=== PATIENT | female | born 1935 | race Caucasian/White ===

== ENCOUNTER → 2017-10-30 12:05 | Outpatient (CLI) | payer MEDICARE, SELFPAY ==
[2017-10-30 14:20] LABS: Absolute Neutrophil Count 2.3 X10^3/uL (2.0-7.7); Basophil# 0.04 X10^3/uL; Eosinophil# 0.05 X10^3/uL; Eosinophils% 1.2 % (0-5); Hematocrit 38.9 % (37-47); Hemoglobin 12.9 g/dl (12.0-15.0); Mean Corp Hgb Conc 33.2 g/gl (32-36); Mean Corpuscular Hgb 32.7 pg (27.0-32.0); Mean Corpuscular Volume 98.7 fL (81-99); Mean Platelet Vol. 12.1 fl (6.2-12.0); Monocyte# 0.33 X10^3/uL; Monocyte% 7.9 % (0-10); Neutrophil # 2.25 X10^3/uL (2.7-7.7); Neutrophil % 53.9 % (47-70); Platelet Count 153 K/mm3 (150-450); RBC Distribution Width CV 12.5 % (11.6-14.6); RBC Distribution Width SD 44.8 fl (35.1-43.9); Red Blood Count 3.94 M/mm3 (4.2-5.4); White Blood Count 4.2 K/mm3 (4.4-11.0)
[2017-10-30 14:29] LABS: POSITIVE COUNT NO; POSITIVE DIFFERENTIAL NO; POSITIVE MORPHOLOGY NO
[2017-10-30 14:34] LABS: ALB/GLOB Ratio 1.2 RATIO (0.9-2.4); AST(SGOT) 26 U/L (15-37); Alanine Aminotransfer ALT/SGPT 27 U/L (13-56); Albumin, Serum 3.4 g/dL (3.2-5.0); Alkaline Phosphatase 63 U/L (45-117); Anion Gap 10 (5-15); BUN 10 mg/dL (7-18); BUN/Creat Ratio 18.7 RATIO (10-20); Calcium,Total 8.1 mg/dL (8.5-10.1); Chloride 109 mmol/L (98-107); Creatinine, Serum 0.54 mg/dL (0.55-1.02); EST Glomerular Filtration Rate 116 mL/min (>60); Est Glom Filt Rate - Afr Amer 140 mL/min (>60); Globulin 2.9 g/dL (2.2-4.2); Glucose 74 mg/dL (74-106); Protein, Total 6.3 g/dL (6.4-8.2); Sodium Level 143 mmol/L (136-145)
== END ==
PROVIDERS: Family Provider Internal Medicine; PCP Internal Medicine; Visit Provider Internal Medicine Rheumatology
DX: M06.4 Inflammatory polyarthropathy (principal); M15.9 Polyosteoarthritis, unspecified; M47.892 Other spondylosis, cervical region; M41.9 Scoliosis, unspecified; K21.9 Gastro-esophageal reflux disease without esophagitis; N39.41 Urge incontinence
CPT/HCPCS: 36415; 80053; 85025

== ENCOUNTER → 2018-04-30 11:07 | Outpatient (CLI) | payer MEDICARE, SELFPAY ==
[2018-04-30 12:25] LABS: Absolute Lymphocyte Count 1.34 X10^3/ul (0.83-4.51); Absolute Neutrophil Count 2.3 X10^3/uL (2.0-7.7); Basophil# 0.03 X10^3/uL; Basophil% 0.7 % (0-1); Eosinophils% 2.4 % (0-5); Hematocrit 38.2 % (37-47); Hemoglobin 12.7 g/dl (12.0-15.0); Lymphocyte # 1.34 X10^3/ul (4.0); Lymphocyte % 32.3 % (19-41); Mean Corp Hgb Conc 33.2 g/gl (32-36); Mean Corpuscular Hgb 33.1 pg (27.0-32.0); Mean Corpuscular Volume 99.5 fL (81-99); Mean Platelet Vol. 11.8 fl (6.2-12.0); Monocyte# 0.42 X10^3/uL; Monocyte% 10.1 % (0-10); Neutrophil # 2.25 X10^3/uL (2.7-7.7); Neutrophil % 54.3 % (47-70); Platelet Count 163 K/mm3 (150-450); RBC Distribution Width CV 12.5 % (11.6-14.6); RBC Distribution Width SD 44.4 fl (35.1-43.9); Red Blood Count 3.84 M/mm3 (4.2-5.4); White Blood Count 4.2 K/mm3 (4.4-11.0)
[2018-04-30 12:26] LABS: POSITIVE COUNT NO; POSITIVE DIFFERENTIAL NO; POSITIVE MORPHOLOGY NO
[2018-04-30 12:41] LABS: ALB/GLOB Ratio 1.2 RATIO (0.9-2.4); AST(SGOT) 23 U/L (15-37); Alanine Aminotransfer ALT/SGPT 27 U/L (13-56); Albumin, Serum 3.5 g/dL (3.2-5.0); Alkaline Phosphatase 71 U/L (45-117); Anion Gap 7 (5-15); BUN 17 mg/dL (7-18); BUN/Creat Ratio 25.1 RATIO (10-20); Calcium,Total 8.5 mg/dL (8.5-10.1); Chloride 108 mmol/L (98-107); Creatinine, Serum 0.68 mg/dL (0.55-1.02); EST Glomerular Filtration Rate 88 mL/min (>60); Est Glom Filt Rate - Afr Amer 107 mL/min (>60); Glucose 78 mg/dL (74-106); Potassium 4.2 mmol/L (3.5-5.1); Protein, Total 6.5 g/dL (6.4-8.2); Sodium Level 143 mmol/L (136-145)
== END ==
PROVIDERS: Family Provider Internal Medicine; PCP Internal Medicine; Referring Provider Internal Medicine Rheumatology; Visit Provider Internal Medicine Rheumatology
DX: M06.4 Inflammatory polyarthropathy (principal); M47.892 Other spondylosis, cervical region; M41.9 Scoliosis, unspecified; K21.9 Gastro-esophageal reflux disease without esophagitis; N39.41 Urge incontinence
CPT/HCPCS: 36415; 80053; 85025

== ENCOUNTER → 2018-10-22 | Outpatient (CLI) | payer MEDICARE, SELFPAY ==
[2018-10-22 13:53] LABS: Absolute Lymphocyte Count 1.45 X10^3/ul (0.83-4.51); Absolute Neutrophil Count 2.7 X10^3/uL (2.0-7.7); Basophil# 0.03 X10^3/uL; Basophil% 0.6 % (0-1); Eosinophils% 2.1 % (0-5); Hematocrit 36.8 % (37-47); Hemoglobin 12.2 g/dl (12.0-15.0); Lymphocyte # 1.45 X10^3/ul (4.0); Lymphocyte % 30.8 % (19-41); Mean Corp Hgb Conc 33.2 g/gl (32-36); Mean Corpuscular Hgb 32.4 pg (27.0-32.0); Mean Corpuscular Volume 97.9 fL (81-99); Mean Platelet Vol. 11.4 fl (6.2-12.0); Monocyte# 0.38 X10^3/uL; Monocyte% 8.1 % (0-10); Neutrophil # 2.74 X10^3/uL (2.7-7.7); Neutrophil % 58.2 % (47-70); Platelet Count 191 K/mm3 (150-450); RBC Distribution Width SD 46.8 fl (35.1-43.9); Red Blood Count 3.76 M/mm3 (4.2-5.4); White Blood Count 4.7 K/mm3 (4.4-11.0)
[2018-10-22 13:57] LABS: POSITIVE COUNT NO; POSITIVE DIFFERENTIAL NO; POSITIVE MORPHOLOGY NO
[2018-10-22 14:08] LABS: ALB/GLOB Ratio 1.1 RATIO (0.9-2.4); AST(SGOT) 26 U/L (15-37); Alanine Aminotransfer ALT/SGPT 26 U/L (13-56); Albumin, Serum 3.3 g/dL (3.2-5.0); Alkaline Phosphatase 71 U/L (45-117); Anion Gap 4 (5-15); BUN 12 mg/dL (7-18); BUN/Creat Ratio 17.8 RATIO (10-20); Chloride 108 mmol/L (98-107); Creatinine, Serum 0.68 mg/dL (0.55-1.02); EST Glomerular Filtration Rate 89 mL/min (>60); Est Glom Filt Rate - Afr Amer 107 mL/min (>60); Globulin 2.9 g/dL (2.2-4.2); Glucose 74 mg/dL (74-106); Protein, Total 6.2 g/dL (6.4-8.2); Sodium Level 140 mmol/L (136-145)
== END | disposition home or self-care (01) ==
LOC: MTLAB 12:08
PROVIDERS: Family Provider Internal Medicine; PCP Internal Medicine; Referring Provider Internal Medicine Rheumatology; Visit Provider Internal Medicine Rheumatology
DX: K21.9 Gastro-esophageal reflux disease without esophagitis (principal); M06.4 Inflammatory polyarthropathy; M15.9 Polyosteoarthritis, unspecified; M47.892 Other spondylosis, cervical region; M41.9 Scoliosis, unspecified; N39.41 Urge incontinence
CPT/HCPCS: 36415; 80053; 85025

== ENCOUNTER 2019-02-04 11:15 | Emergency (ER) | payer MEDICARE, SELFPAY ==
[2019-02-04 11:16] VITALS: BP 153/70; PULSE 61; RESP 14; TEMP 37.1; O2SAT 98; BMI 20.7
--- NOTE | 2019-02-04 11:32 | CT_ITS ---
STUDY: CT ABDOMEN AND PELVIS WITH CONTRAST REASON FOR EXAM: Female, 83 years old. Nausea and vomiting RADIATION DOSAGE (If Supplied By Facility): CTDIvol = ( 13.38 ) mGy, DLP = ( 482.13 ) mGycm TECHNIQUE: Transaxial images were obtained from the dome of the diaphragm to the symphysis pubis without oral contrast. 100 IV/Oral Isovue 300 was administered. Sagittal and coronal images were reconstructed. Individualized dose optimization techniques were used for this CT. COMPARISON: None. FINDINGS: There are chronic interstitial fibrotic changes of the lung bases. The visualized portions of the heart are within normal limits. Liver is unremarkable, no discrete lesion is noted. There is central intrahepatic biliary dilatation but patient has undergone previous cholecystectomy so this is not an unusual finding. There are surgical clips in the gallbladder fossa consistent with a prior cholecystectomy. Normal spleen. Normal pancreas. Normal bilateral adrenal glands. Normal right kidney. Normal left kidney. Postsurgical changes noted at the GE junction. Normal small intestine. Retained stool noted in the colon. There are surgical clips in the region of the appendix consistent with a prior appendectomy. Normal abdominal aorta. Normal inferior vena cava. Normal retroperitoneum. Normal urinary bladder. There is absence of the uterus consistent with a prior hysterectomy. Normal abdominal wall. There are diffuse degenerative changes of the visualized lumbar spine, and pelvis. Rotatory scoliosis noted CT/Abdomen/Pelvis WITH Contrast IMPRESSION: No suspicious solid organomegaly, there are changes in the liver and biliary tree consistent with previous cholecystectomy No CT evidence of an acute inflammatory process Retained stool noted in the colon Degenerative bony changes with prominent rotatory scoliosis Electronically Signed: Dominic Gilmore MD at 13:47 EDT , Service support ,
[2019-02-04 11:43] LABS: Absolute Lymphocyte Count 1.02 X10^3/uL (0.83-4.51); Absolute Neutrophil Count 4.6 X10^3/uL (2.0-7.7); Basophil# 0.03 X10^3/uL; Basophil% 0.5 % (0-1); Eosinophil# 0.05 X10^3/uL; Eosinophils% 0.8 % (0-5); Hematocrit 38.1 % (37-47); Lymphocyte # 1.02 X10^3/ul (4.0); Lymphocyte % 16.7 % (19-41); Mean Corp Hgb Conc 34.1 g/dL (32-36); Mean Corpuscular Hgb 33.2 pg (27.0-32.0); Mean Corpuscular Volume 97.4 fL (81-99); Mean Platelet Vol. 11.1 fl (6.2-12.0); Monocyte# 0.38 X10^3/uL; Monocyte% 6.2 % (0-10); NRBC Flagged by Analyzer 0 % (0-5); Neutrophil # 4.62 X10^3/uL (2.7-7.7); Neutrophil % 75.5 % (47-70); Platelet Count 180 K/mm3 (150-450); RBC Distribution Width CV 12.4 % (11.6-14.6); RBC Distribution Width SD 44.2 fl (35.1-43.9); Red Blood Count 3.91 M/mm3 (4.2-5.4); White Blood Count 6.1 K/mm3 (4.4-11.0)
[2019-02-04 11:50] LABS: Anion Gap 2 (5-15); BUN 14 mg/dL (7-18); BUN/Creat Ratio 21.3 RATIO (10-20); Calcium,Total 8.3 mg/dL (8.5-10.1); Chloride 111 mmol/L (98-107); Creatinine, Serum 0.66 mg/dL (0.55-1.02); EST Glomerular Filtration Rate 91 mL/min (>60); Est Glom Filt Rate - Afr Amer 111 mL/min (>60); Estimated Creatinine Clearance 30.62 ml/min; Glucose 93 mg/dL (74-106); Lipase 80 U/L (73-393); Sodium Level 139 mmol/L (136-145)
[2019-02-04 12:19] LABS: Lactic Acid 1.2 mmol/L (0.4-2.0)
[2019-02-04] MEDS: 0.9% Normal Saline 1,000 ML 125 ML IV (12:35)
[2019-02-04] MEDS: Morphine 4 MG/ML Syringe IV (12:35)
[2019-02-04] MEDS: Ondansetron 4 MG/2 ML Vial IV (12:35)
[2019-02-04 12:45] LABS: Mucous, Urine 0 SEEN /hpf (<or=2+); Red Blood Cells-Urine 0 SEEN /hpf (0-5); Squamous Epithelial Cells - UA 0 SEEN /hpf (5-10)
[2019-02-04 12:49] LABS: Color, Urine Yellow (Yellow); Glucose, Dipstick Normal (Normal); Ketone-Dipstick 5 mg/dl (Negative); Leukocyte Esterase-Dipstick 25 /ul (Negative); Nitrite-Dipstick Positive (Negative); Occult Blood-Urine 10 /ul (Negative); Protein-Dipstick Negative (Negative); Specific Gravity, Urine 1.015 (1.002-1.030); Urine Bilirubin Dipstick Negative (Negative); Urine Clarity Sl. Cloudy (Clear); Urine Urobilinogen Normal (Normal)
[2019-02-04 12:57] LABS: Bacteria 3+ /hpf (None Seen); White Blood Cells 0-5 SEEN /hpf (0-5)
[2019-02-04 13:15] VITALS: BP 141/70; PULSE 61; RESP 15; O2SAT 97
--- NOTE | 2019-02-04 14:27 | ED.VISSUMM ---
- ER Visit Summary Date of Service: 02/04/19 Chief Complaint: [Abdominal pain] History of Present Illness: The patient is a 83 F [presents to the emergency department with abdominal pain since 8:30 AM this morning. Patient complains of a lot of cramping with severe pain that waxes and wanes in intensity. Pain worse with certain movements. She is had some mild nausea but no vomiting. She denies any diarrhea. Patient came on relatively suddenly after going out for a walk this morning. Patient has not had any fevers. Patient denies any blood in her stool or black tarry stool. She has not had pain like this before. Her last bowel movement was last night and was normal. Patient does have a history of osteoporosis and she has had prior appendectomy, cholecystectomy, and hysterectomy.] Physical Examination: [HEENT-PERRLA, EOMI. Cranial nerves II through XII grossly intact. TMs clear. Mucous membranes moist. No adenopathy. Cardiovascular-regular rate and rhythm without murmur or ectopy Lungs-clear to auscultation, chest wall stable without crepitus or subcu emphysema Abdomen-normoactive bowel sounds, soft. Patient has diffuse tenderness to palpation. There is some mild guarding. No rebound, rigidity, or perineal signs. Extremities-intact ?4, normal range of motion, normal pulses, atraumatic] Test Results: [CBC with differential shows a white count 6.1, hemoglobin 13, hematocrit 38, platelets 180. Chemistries unremarkable. LFTs were normal. Lipase was 80. Urinalysis was positive for nitrites as well as +3 bacteria however only 0-5 WBCs and [address] scan of the abdomen and pelvis showed some fecal stasis but otherwise nothing acute.] Emergency Department Course and Treatment: [Initially medicated with 4 mg of morphine 4 mg Zofran she had good pain relief with that. Patient was given Keflex 500 mill grams p.o.] Treatment Plan: [She will be treated with Keflex and Bentyl for cramping. Patient advised to use some [id number] magnesium citrate. Patient to follow-up with her primary care physician within next 3 to 5 days.] Disposition: [Discharged home stable condition] Impression: [Abdominal pain UTI] This note was generated with [employer] dictation software. It may contain incorrect words, spelling, and punctuation that were not noted in review of the chart prior to signing ED Disposition - Plan for ED Patient: Referrals: Hazel Lorenzo MD [Primary Care Provider] -
--- NOTE | 2019-02-04 14:31 | ED.DEP ---
ED Disposition - Plan for ED Patient: Instructions: ABDOMINAL PAIN, Unknown Cause, (Female), Urinary Tract Infections in Women Prescriptions: Dicyclomine HCl [Bentyl] 20 mg PO TIDAC #20 cap Prescription Printed Cephalexin [Keflex] 500 mg PO Q6 #28 cap Prescription Printed Referrals: Hazel Lorenzo MD [Primary Care Provider] - 3-5 Days
[2019-02-04] MEDS: Cephalexin 250 MG Capsule 500 MG PO (14:42)
[2019-02-04 14:43] VITALS: BP 152/97; PULSE 71; RESP 24; O2SAT 95
== END 2019-02-04 14:49 | disposition home or self-care (01) ==
LOC: ED 11:41
PROVIDERS: Emergency Provider Emergency Medicine; Family Provider Internal Medicine; PCP Internal Medicine
DX: N39.0 Urinary tract infection, site not specified (principal); M81.0 Age-related osteoporosis without current pathological fracture; Z90.710 Acquired absence of both cervix and uterus; Z90.49 Acquired absence of other specified parts of digestive tract
CPT/HCPCS: 74177; 80048; 81001; 83605; 83690; 85025; 96361; 96374; 96375; 99285; J7030; Q9967; A4216; J2405

== ENCOUNTER → 2019-02-12 09:26 | Outpatient (CLI) | payer MEDICARE, SELFPAY ==
[2019-02-04 11:16] VITALS: BMI 20.7
[2019-02-12 12:11] LABS: Absolute Neutrophil Count 2.7 X10^3/uL (2.0-7.7); Basophil# 0.04 X10^3/uL; Basophil% 0.9 % (0-1); Eosinophil# 0.13 X10^3/uL; Eosinophils% 2.8 % (0-5); Hematocrit 37.8 % (37-47); Hemoglobin 12.4 g/dL (12.0-15.0); Lymphocyte % 28.1 % (19-41); Mean Corp Hgb Conc 32.8 g/dL (32-36); Mean Corpuscular Hgb 32.3 pg (27.0-32.0); Mean Corpuscular Volume 98.4 fL (81-99); Mean Platelet Vol. 11.7 fl (6.2-12.0); Monocyte# 0.46 X10^3/uL; Monocyte% 9.9 % (0-10); NRBC Flagged by Analyzer 0 % (0-5); Neutrophil # 2.69 X10^3/uL (2.7-7.7); Neutrophil % 58.1 % (47-70); Platelet Count 182 K/mm3 (150-450); RBC Distribution Width CV 12.5 % (11.6-14.6); RBC Distribution Width SD 44.9 fl (35.1-43.9); Red Blood Count 3.84 M/mm3 (4.2-5.4); White Blood Count 4.6 K/mm3 (4.4-11.0)
[2019-02-12 12:50] LABS: ALB/GLOB Ratio 1.1 RATIO (0.9-2.4); AST(SGOT) 24 U/L (15-37); Alanine Aminotransfer ALT/SGPT 27 U/L (13-56); Albumin, Serum 3.2 g/dL (3.2-5.0); Alkaline Phosphatase 78 U/L (45-117); Anion Gap 9 (5-15); BUN 11 mg/dL (7-18); BUN/Creat Ratio 15.8 RATIO (10-20); Calcium,Total 8.5 mg/dL (8.5-10.1); Chloride 109 mmol/L (98-107); EST Glomerular Filtration Rate 86 mL/min (>60); Est Glom Filt Rate - Afr Amer 103 mL/min (>60); Globulin 2.9 g/dL (2.2-4.2); Glucose 94 mg/dL (74-106); Potassium 3.9 mmol/L (3.5-5.1); Protein, Total 6.1 g/dL (6.4-8.2); Sodium Level 144 mmol/L (136-145)
== END ==
PROVIDERS: Family Provider Internal Medicine; PCP Internal Medicine; Referring Provider Internal Medicine Rheumatology; Visit Provider Internal Medicine Rheumatology
DX: M06.4 Inflammatory polyarthropathy (principal); M15.9 Polyosteoarthritis, unspecified; M47.892 Other spondylosis, cervical region; M41.9 Scoliosis, unspecified; K21.9 Gastro-esophageal reflux disease without esophagitis; N39.41 Urge incontinence; H35.30 Unspecified macular degeneration
CPT/HCPCS: 36415; 80053; 85025

== ENCOUNTER → 2019-04-16 11:56 | Outpatient (CLI) | payer MEDICARE, SELFPAY ==
[2019-04-16 13:44] LABS: Absolute Lymphocyte Count 1.77 X10^3/uL (0.83-4.51); Absolute Neutrophil Count 3.5 X10^3/uL (2.0-7.7); Basophil# 0.04 X10^3/uL; Basophil% 0.7 % (0-1); Eosinophil# 0.08 X10^3/uL; Eosinophils% 1.3 % (0-5); Hemoglobin 12.7 g/dL (12.0-15.0); Lymphocyte # 1.77 X10^3/ul (4.0); Lymphocyte % 29.8 % (19-41); Mean Corp Hgb Conc 33.4 g/dL (32-36); Mean Corpuscular Hgb 33.4 pg (27.0-32.0); Mean Platelet Vol. 11.4 fl (6.2-12.0); Monocyte# 0.51 X10^3/uL; Monocyte% 8.6 % (0-10); NRBC Flagged by Analyzer 0 % (0-5); Neutrophil # 3.53 X10^3/uL (2.7-7.7); Neutrophil % 59.4 % (47-70); Platelet Count 205 K/mm3 (150-450); RBC Distribution Width CV 13.2 % (11.6-14.6); RBC Distribution Width SD 48.3 fl (35.1-43.9); White Blood Count 5.9 K/mm3 (4.4-11.0)
[2019-04-16 14:02] LABS: ALB/GLOB Ratio 1.2 RATIO (0.9-2.4); AST(SGOT) 23 U/L (15-37); Albumin, Serum 3.4 g/dL (3.2-5.0); BUN 13 mg/dL (7-18); BUN/Creat Ratio 19.9 RATIO (10-20); Calcium,Total 8.5 mg/dL (8.5-10.1); Creatinine, Serum 0.65 mg/dL (0.55-1.02); EST Glomerular Filtration Rate 92 mL/min (>60); Est Glom Filt Rate - Afr Amer 111 mL/min (>60); Globulin 2.9 g/dL (2.2-4.2); Glucose 84 mg/dL (74-106); Protein, Total 6.3 g/dL (6.4-8.2)
[2019-04-16 14:03] LABS: Alanine Aminotransfer ALT/SGPT 22 U/L (13-56); Alkaline Phosphatase 79 U/L (45-117); Anion Gap 8 (5-15); Chloride 106 mmol/L (98-107); Sodium Level 143 mmol/L (136-145)
== END ==
PROVIDERS: Family Provider Internal Medicine; PCP Internal Medicine; Referring Provider Internal Medicine Rheumatology; Visit Provider Internal Medicine Rheumatology
DX: M06.4 Inflammatory polyarthropathy (principal); M15.9 Polyosteoarthritis, unspecified; M47.892 Other spondylosis, cervical region; M41.9 Scoliosis, unspecified; K21.9 Gastro-esophageal reflux disease without esophagitis; N39.41 Urge incontinence; H35.30 Unspecified macular degeneration
CPT/HCPCS: 36415; 80053; 85025

== ENCOUNTER → 2019-08-06 10:39 | Outpatient (CLI) | payer MEDICARE, SELFPAY ==
[2019-08-06 12:31] LABS: Absolute Lymphocyte Count 1.52 X10^3/uL (0.83-4.51); Absolute Neutrophil Count 2.7 X10^3/uL (2.0-7.7); Basophil# 0.04 X10^3/uL; Basophil% 0.8 % (0-1); Eosinophils% 2.1 % (0-5); Hematocrit 39.2 % (37-47); Hemoglobin 12.8 g/dL (12.0-15.0); Lymphocyte # 1.52 X10^3/ul (4.0); Lymphocyte % 32.1 % (19-41); Mean Corp Hgb Conc 32.7 g/dL (32-36); Mean Corpuscular Hgb 31.8 pg (27.0-32.0); Mean Corpuscular Volume 97.3 fL (81-99); Mean Platelet Vol. 11.5 fl (6.2-12.0); Monocyte# 0.41 X10^3/uL; Monocyte% 8.6 % (0-10); NRBC Flagged by Analyzer 0 % (0-5); Neutrophil # 2.66 X10^3/uL (2.7-7.7); Neutrophil % 56.2 % (47-70); Platelet Count 161 K/mm3 (150-450); RBC Distribution Width CV 12.7 % (11.6-14.6); RBC Distribution Width SD 45.3 fl (35.1-43.9); Red Blood Count 4.03 M/mm3 (4.2-5.4); White Blood Count 4.7 K/mm3 (4.4-11.0)
[2019-08-06 12:41] LABS: AST(SGOT) 21 U/L (15-37); Alanine Aminotransfer ALT/SGPT 27 U/L (13-56); Albumin, Serum 3.4 g/dL (3.2-5.0); Alkaline Phosphatase 76 U/L (45-117); Anion Gap 4 (5-15); BUN 19 mg/dL (7-18); BUN/Creat Ratio 27.3 RATIO (10-20); Calcium,Total 8.7 mg/dL (8.5-10.1); Chloride 110 mmol/L (98-107); EST Glomerular Filtration Rate 85 mL/min (>60); Est Glom Filt Rate - Afr Amer 103 mL/min (>60); Globulin 3.3 g/dL (2.2-4.2); Glucose 70 mg/dL (74-106); Potassium 3.7 mmol/L (3.5-5.1); Protein, Total 6.7 g/dL (6.4-8.2); Sodium Level 141 mmol/L (136-145)
== END ==
PROVIDERS: PCP Internal Medicine; Referring Provider Internal Medicine Rheumatology; Visit Provider Internal Medicine Rheumatology
DX: M06.4 Inflammatory polyarthropathy (principal); Z79.899 Other long term (current) drug therapy; M47.892 Other spondylosis, cervical region; M41.9 Scoliosis, unspecified; M15.9 Polyosteoarthritis, unspecified
CPT/HCPCS: 36415; 80053; 85025; 87086; 87088; 87186

== ENCOUNTER → 2019-12-02 11:58 | Outpatient (CLI) | payer MEDICARE, SELFPAY ==
[2019-12-02 14:52] LABS: Absolute Lymphocyte Count 1.76 X10^3/uL (0.83-4.51); Absolute Neutrophil Count 2.5 X10^3/uL (2.0-7.7); Basophil# 0.04 X10^3/uL; Basophil% 0.8 % (0-1); Eosinophil# 0.16 X10^3/uL; Eosinophils% 3.2 % (0-5); Hematocrit 39.7 % (37-47); Hemoglobin 12.9 g/dL (12.0-15.0); Lymphocyte # 1.76 X10^3/ul (4.0); Lymphocyte % 35.5 % (19-41); Mean Corp Hgb Conc 32.5 g/dL (32-36); Mean Corpuscular Hgb 31.9 pg (27.0-32.0); Mean Platelet Vol. 11.3 fl (6.2-12.0); Monocyte# 0.45 X10^3/uL; Monocyte% 9.1 % (0-10); NRBC Flagged by Analyzer 0 % (0-5); Neutrophil # 2.54 X10^3/uL (2.7-7.7); Neutrophil % 51.2 % (47-70); Platelet Count 197 K/mm3 (150-450); RBC Distribution Width CV 12.6 % (11.6-14.6); RBC Distribution Width SD 45.6 fl (35.1-43.9); Red Blood Count 4.05 M/mm3 (4.2-5.4)
[2019-12-02 15:17] LABS: ALB/GLOB Ratio 1.1 RATIO (0.9-2.4); AST(SGOT) 24 U/L (15-37); Alanine Aminotransfer ALT/SGPT 28 U/L (13-56); Albumin, Serum 3.4 g/dL (3.2-5.0); Alkaline Phosphatase 77 U/L (45-117); Anion Gap 4 (5-15); BUN 14 mg/dL (7-18); BUN/Creat Ratio 22.3 RATIO (10-20); Calcium,Total 9.2 mg/dL (8.5-10.1); Chloride 107 mmol/L (98-107); Creatinine, Serum 0.63 mg/dL (0.55-1.02); EST Glomerular Filtration Rate 96 mL/min (>60); Est Glom Filt Rate - Afr Amer 116 mL/min (>60); Globulin 3.1 g/dL (2.2-4.2); Glucose 66 mg/dL (74-106); Potassium 3.8 mmol/L (3.5-5.1); Protein, Total 6.5 g/dL (6.4-8.2); Sodium Level 141 mmol/L (136-145)
== END ==
PROVIDERS: PCP Internal Medicine; Referring Provider Internal Medicine Rheumatology; Visit Provider Internal Medicine Rheumatology
DX: M06.4 Inflammatory polyarthropathy (principal); Z79.899 Other long term (current) drug therapy; M15.9 Polyosteoarthritis, unspecified; M47.892 Other spondylosis, cervical region; M41.9 Scoliosis, unspecified; K21.9 Gastro-esophageal reflux disease without esophagitis; N39.41 Urge incontinence; H35.30 Unspecified macular degeneration
CPT/HCPCS: 36415; 80053; 85025

== ENCOUNTER 2020-01-24 12:03 | Emergency (ER) | payer MEDICARE, SELFPAY ==
[2020-01-24] VITALS (11 sets, daily range): BP systolic 136–185; BP diastolic 63–111; PULSE 65–101; RESP 14–20; TEMP 36.5; O2SAT 97–100; BMI 19.1
--- NOTE | 2020-01-24 12:06 | CT_ITS ---
STUDY: CT BRAIN WITHOUT CONTRAST REASON FOR EXAM: Female, 84 years old. unresponsive. cva RADIATION DOSAGE (If Supplied By Facility): CTDIvol = ( 44.99 ) mGy, DLP = ( 815.79 ) mGycm TECHNIQUE: Transaxial CT imaging of the brain was performed without administration of intravenous contrast material. Individualized dose optimization techniques were used for this CT. COMPARISON: No relevant priors. FINDINGS: Normal soft tissue structures. Normal calvarium. There is mild cerebral atrophy with widening of the extra-axial spaces and ventricular dilatation. There are areas of decreased attenuation within the white matter tracts of the supratentorial brain, consistent with microvascular disease changes. Normal basal ganglia and thalami. Normal brainstem. There is a 2.9 cm x 3.7 cm acute hematoma in the central portion of the cerebellum. This causes hydrocephalus. Normal visualized paranasal sinuses. CT/Brain/Head without Contrast IMPRESSION: Acute hematoma in the central portion of the cerebellum causing hydrocephalus. N.B. : The above information has been verbally conveyed by Noah Moses to ROGE BURDICK on 01/24/2020 12:25:53 (ET). Electronically Signed: Noah Moses, at 12:27 EDT , Service support ,
--- NOTE | 2020-01-24 12:08 | EKG12_ITS ---
Test Reason : DYSRHYTHMIA Blood Pressure : / mmHG Vent. Rate : 062 BPM Atrial Rate : 062 BPM P-R Int : 164 ms QRS Dur : 078 ms QT Int : 454 ms P-R-T Axes : 069 068 066 degrees QTc Int : 460 ms Normal sinus rhythm Normal ECG Confirmed by SAHIL PARK, NOHEMI ([id number]), assignment desk editor BRIAN ALVES ([id number]) on 01/27/2020 8:23:33 AM Referred By: RADHA Confirmed By:NOHEMI BAXTER MD
--- NOTE | 2020-01-24 12:10 | ED.DCSUM_ITS ---
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 She is unable to give a history. She has normal vital signs. Her blood sugar was in the 130s. Report by EMS is that her last saw her 30 minutes prior and she was feeling unwell like she did not want a go further normal walk. When he came back 30 minutes later she was laying on the floor. She has been unresponsive since. There is no reported medical history. EMS states that her states she does not take any medicines and has no medical problems. Past Medical History - Allergies and Home Meds Allergies/Adverse Reactions: Allergies Sulfa (Sulfonamide Antibiotics) Allergy (Verified 02/04/19 13:21) Rash codeine Adverse Reaction (Verified 02/04/19 13:21) Vomiting Primary Care Physician: Hazel Lorenzo MD [Primary Care Provider] - Doctors: Unknown Past Medical History: - - Unable to assess Lives: Spouse/ Significant Other Smoking Status: Never smoker Review of Systems ROS: Unable to Obtain Physical Exam Inital Vital Signs reviewed: Yes General: Well nourished, Well developed Head: Normocephalic, Atraumatic Eyes: - - Pupils are pinpoint ENT: Dry mucous membranes Cardiovascular: Regular rate, Regular rhythm Respiratory: CTA bilaterally Abdomen: Soft, Nontender Skin: Normal color, No rash Neurological: Lethargic Diagnostic/Tx/Re-eval Chest X-Ray - ED: 1 View, Read by Radiologist CT brain:There is mild cerebral atrophy with widening of the extra-axial spaces and ventricular dilatation. There are areas of decreased attenuation within the white matter tracts of the supratentorial brain, consistent with microvascular disease changes. Normal basal ganglia and thalami. Normal brainstem. There is a 2.9 cm x 3.7 cm acute hematoma in the central portion of the cerebellum. This causes hydrocephalus. - Rhythm Strip Rhythm Strip: Sinus Rhythm Rate: 62 - R interval 164 msQRS duration 78 msQTc 460 ms - Medical Decision Making Patient presents with acute change in mental status. Last known well 30 minutes prior when her states that she was normal. He does state that she was fatigue and did not want to take a walk like they normally do. She has been unarousable by EMS and by me. Her vital signs were stable upon arrival. Her blood sugar was normal. Patient was grossly unresponsive however. She was taken to CT and which identified there is a 2.9 cm x 3.7 cm acute hematoma in the centralportion of the cerebellum secondary hydrocephalus hydrocephalus. There is mild cerebral atrophy with widening of the extra-axial spaces andventricular dilatation. There are areas of decreasedattenuation withinthe white matter tracts of the supratentorial brain, consistent withmicrovascular disease changes. Normal basal ganglia and thalami. Normalbrainstem. There is a 2.9 cm x 3.7 cm acute hematoma in the centralportion of the cerebellum and secondary hydrocephalus. Patient's EKG was sinus rhythm without signs of ischemia. Her troponin was 0.9 however. Patient was not given aspirin or h eparin given that she has a brain bleed. Intubation patient was started on propofol drip as her blood pressure began to rise. Discussed with [facility] which is where her wished her to go. They accepted the patient. She was transported via [facility] in guarded condition. Procedure note: Emergent verbal consent was given by her for intubation. Patient was paralyzed with 30 mg of rocuronium. Proctor scope was utilized to place a 7.5 ET tube into the airway and first attempt. This was 22 cm at the lips. Placement was confirmed at the bedside and by chest x-ray. Maintaining O2 sats in normal range. - Critical Care Time Critical care time (excluding procedures): 30-74 minutes, Discussing w/Patient &/or Family/Site Surveyor, Discussing w/Consultants, Arranging Admission or Transfer, Performing Direct Patient Care at Bedside ED Disposition - Plan for ED Patient: Disposition: [facility] Diagnosis: Intracranial bleeding, Altered mental state, NSTEMI (non-ST elevated myocardial infarction) Referrals: Hazel Lorenzo MD [Primary Care Provider] -
[2020-01-24] MEDS: Rocuronium Bromide 50 MG/5 ML Vial 30 MG IV (12:29)
--- NOTE | 2020-01-24 12:40 | RAD_ITS ---
STUDY: X-RAY CHEST REASON FOR EXAM: Female, 84 years old. Et tube placement and ogo placement TECHNIQUE: Single AP portable view of the chest. COMPARISON: None. FINDINGS: An endotracheal tube is in situ. The tip is at 4.3 cm proximal to the kamala. An orogastric tube is seen with the tip below the left hemidiaphragm. The lungs are clear and expanded. There is no demonstrated pleural abnormality. Normal size heart. Normal mediastinum and sanford. Normal visualized pulmonary arteries. There is atherosclerotic calcification of the aortic arch with tortuosity. There is a dextroscoliosis of the thoracic spine. Prior left shoulder replacement. There is no demonstrated abnormality of the visualized soft tissue structures of the upper abdomen. RAD/Chest 1 View (Portable) IMPRESSION: The tip of the endotracheal tube is at 4.3 cm proximal to the kamala. The tip of the orogastric tube is seen below the left hemidiaphragm. Electronically Signed: Noah Moses, at 12:58 EDT , Service support ,
[2020-01-24 12:44] LABS: Anion Gap 7 (5-15); BUN 10 mg/dL (7-18); Calcium,Total 8.6 mg/dL (8.5-10.1); Chloride 104 mmol/L (98-107); Creatinine, Serum 0.59 mg/dL (0.55-1.02); EST Glomerular Filtration Rate 104 mL/min (>60); Est Glom Filt Rate - Afr Amer 125 mL/min (>60); Estimated Creatinine Clearance 32.33 ml/min; Glucose 129 mg/dL (74-106); Potassium 3.7 mmol/L (3.5-5.1); Sodium Level 137 mmol/L (136-145)
[2020-01-24] MEDS: Propofol 10MG/Ml 1,000 MG/100 ML Bottle 2.9 MG CONT INF (12:45)
--- NOTE | 2020-01-24 12:45 | ED.RN ---
PT HEAD CT ABNORMAL. DR BURDICK NOTIFIED. RETURNED TO ED BED 1. INFORMED OF RESULTS. ESCORTED TO WAITING ROOM AND SPEAKING WITH ANIA DE LA TORRE. PT SET UP FOR INTUBATION. MEDICATION GIVEN BY CHARY Cantrell RN. INTUBATED BY DR BURDICK. 7.5 TUBE 21 AT THE LIP. OG INSERTED BY THIS NURSE. CHEST XRAY COMPLETED. DR BURDICK IN THE ROOM TO SEE XRAY. PROPOFOL STARTED
[2020-01-24 12:56] LABS: Absolute Lymphocyte Count 0.69 X10^3/uL (0.83-4.51); Absolute Neutrophil Count 7.3 X10^3/uL (2.0-7.7); Basophil# 0.01 X10^3/uL; Basophil% 0.1 % (0-1); Hematocrit 37.2 % (37-47); Hemoglobin 12.7 g/dL (12.0-15.0); Lymphocyte # 0.69 X10^3/ul (4.0); Lymphocyte % 8.2 % (19-41); Mean Corp Hgb Conc 34.1 g/dL (32-36); Mean Corpuscular Hgb 32.9 pg (27.0-32.0); Mean Corpuscular Volume 96.4 fL (81-99); Mean Platelet Vol. 11.5 fl (6.2-12.0); Monocyte# 0.35 X10^3/uL; Monocyte% 4.2 % (0-10); NRBC Flagged by Analyzer 0 % (0-5); Neutrophil # 7.31 X10^3/uL (2.7-7.7); Neutrophil % 87.3 % (47-70); Platelet Count 180 K/mm3 (150-450); RBC Distribution Width CV 12.3 % (11.6-14.6); RBC Distribution Width SD 42.3 fl (35.1-43.9); Red Blood Count 3.86 M/mm3 (4.2-5.4); White Blood Count 8.4 K/mm3 (4.4-11.0)
--- NOTE | 2020-01-24 13:03 | ED.RN ---
BEDSIDE REPORT GIVEN TO [employer].
--- NOTE | 2020-01-24 13:15 | CM.ED ---
Social Work Consult: Patient unresponsive Met with patient spouse, Art. Per nursing staff, stating patient spouse appears to be confused and repeats self often. Medhat does present as a poor historian. Art states that my niece, Iraida is coming. After further conversation Iraida is actually Medhat's granddaughter. Art continues to call Iraida my niece. Iraida arriving to ED and providing support for Art as well. Support provided to both Iraida and Art. Dr. Holloway speaking with Art and Iraida. Patient to be life flighted to [facility]. Art provided with patient belongings bag. Iraida reports to take responsibility for Art and states to this social psychologist that Medhat is diagnosed with Dementia. Iraida plans to transport Art to [facility]. Support provided. Medhat and Iraida did want to see patient prior to transfer, this social psychologist able to help facilitate this interaction. Awa Castro MSW, SUDHA
== END 2020-01-24 13:15 | disposition short-term general hospital (02) ==
LOC: ED 12:36
PROVIDERS: Emergency Provider Student in an Organized Health Care Education/Training Program; PCP Internal Medicine
DX: I62.9 Nontraumatic intracranial hemorrhage, unspecified (principal); I21.4 Non-ST elevation (NSTEMI) myocardial infarction; G91.9 Hydrocephalus, unspecified; Z86.73 Personal history of transient ischemic attack (TIA), and cerebral infarction without residual deficits; Z88.2 Allergy status to sulfonamides; Z88.5 Allergy status to narcotic agent; G31.9 Degenerative disease of nervous system, unspecified
CPT/HCPCS: 31500; 51702; 70450; 71045; 80048; 84484; 85025; 93005; 99251; 99285; J7030; A4216; G0463